=== PATIENT | female | born 2000 | race Caucasian/White ===

== ENCOUNTER 2019-07-18 11:25 | Outpatient (CLI) | payer SELFPAY ==
--- NOTE | 2019-07-18 | US_ITS ---
WS: [id number] ULTRASOUND OB COMPLETE TECHNIQUE: Complete ultrasound. CLINICAL INFORMATION: SUPERVISION OF NORMAL FIRST FIRST TRIMESTER COMPARISON: None. FINDINGS: Cervix measures 3.5 cm Single interuterine gestation is identified with breech presentation. Placenta is posterior. Placenta grade 0. Normal amniotic fluid volume. cardiac activity: 148 BPM. AGA: 21 weeks 1 day VANDANA by ultrasound: November 27, 2019 Estimated weight: 15 ounces BDP: 4.9 cm = 20w6d HC: 18.4 cm = 20w6d AC: 17.1 cm = 22w0d FEMUR LENGTH: 3.4 cm = 20w6d Anatomic survey: Anatomic survey is normal. Normal stomach. Kidneys and bladder are normal. Normal 3 vessel cord. Norm al 3 vessel cord insertion. Normal 4 chamber heart. Normal spine. Intracranial contents are normal. N ormal posterior fossa and cisterna magna. US/US OB >= 14 weeks fetus [id number] IMPRESSION: 1. Single intrauterine with visualized cardiac activity. AGA 21 week s 1 day with VANDANA November 27, 2019. 2. Placenta is posterior No evidence of abruption or previa. 3. anatomic survey is normal. 4. Normal amniotic fluid volume.
== END 2019-07-18 11:26 | disposition home or self-care (01) ==
LOC: RADOUTREAD 07-19 09:42
PROVIDERS: Visit Provider Family Medicine
DX: Z76.89 Persons encountering health services in other specified circumstances (principal)

== ENCOUNTER → 2025-02-06 11:42 | Outpatient (BNVA) | payer MEDICAID, SELFPAY | PROVIDERS: PCP Registered Nurse; Visit Provider Registered Nurse | DX: E86.0 Dehydration (principal) | CPT/HCPCS: 81000 ==